=== PATIENT | male | born 1995 | race Caucasian/White ===

== ENCOUNTER 2018-04-11 02:41 | Emergency (ER) | payer BC ==
[~2018-04-11] VITALS: Ht 185.4 cm; Wt 90.7 kg
[~2018-04-11 02:41] MED LIST: BACTRIM-DS1 EA PO; CEPHALEXIN500 MG PO
[2018-04-11 03:00] VITALS: BP 0/0
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
== END 2018-04-11 03:15 | disposition home or self-care (01) ==
LOC: EMR 03:07
DX: S00.83XA Contusion of other part of head, initial encounter (principal); Y04.0XXA Assault by unarmed brawl or fight, initial encounter; Y92.511 Restaurant or cafe as the place of occurrence of the external cause
CPT/HCPCS: 99281